=== PATIENT | female | born 1995 | race Caucasian/White ===

== ENCOUNTER 2017-03-21 20:24 | Emergency (ER) ==
[2017-03-21 20:28] VITALS: BP 129/87; TEMP 99.9; BMI 20.7
[2017-03-21] MEDS ORDERED: DECADRON 4 MG/ML SDV IM STA (20:47)
[2017-03-21] MEDS ORDERED: DUONEB NEB STA (20:48)
--- NOTE | 2017-03-21 20:51 | ED.PDOC ---
General ED Provider: Dr. KIARA PERALTA Chief Complaint: Respiratory Complaint Stated Complaint: Coughing congestion, sinus drainage,. been treated x 3 with Tamiflu, cipro, dose pack. Time Seen by Physician: 20:49 Mode of Arrival: Walk-In Information Source: Patient, Family Primary Care Provider: JUNIE CASEY Nursing and Triage Documentation Reviewed and Agree: Yes Reviewed sepsis parameters & appropriate labs ordered?: No System Inflammatory Response Syndrome: Not Applicable Sepsis Protocol: For patient's 13 years and over: Temp is 96.8 and below OR 101 and greater Pulse >90 BPM Resp >20/minute Acutely Altered Mental Status Are patient's symptoms suggestive of a new infection, such as: -Pneumonia -Skin, Soft Tissue -Endocarditis -UTI -Bone, Joint Infection -Implantable Device -Acute Abdominal Infection -Wound Infection -Meningitis -Blood Stream Catheter Infection -Unknown Respiratory Complaint Exam - Respiratory Complaint/Exam Symptoms Are: Still present Timing: Constant Initial Severity: Mild Current Severity: Mild Location: Throat, Chest Character: Reports: Productive cough Aggravating: Reports: Exertion, URI Alleviating: Reports: None Associated Signs and Symptoms: Reports: Dyspnea, Wheezing, URI, Nasal congestion. Denies: Rapid breathing, Fever, Chills, Chest pain, Pleuritic chest pain, Hemoptysis, Dizziness, Calf pain, Calf swelling, Edema, Hoarseness, Sinus discomfort, Vomiting, Sore throat, Weight loss, Decreased oral intake, Increased thirst, Increased appetite, Increased urination Related History: Reports: Similar episode History of Healthcare-Acquired Pneumonia: No Related Surgical History: Reports: None Pulmonary Embolism Risk Factors: None Cardiac Risk Factors: Reports: None Pseudomonas Risk Factors: Reports: None Tuberculosis Risk Factors: Reports: None Status Asthmaticus Risk Factors: Reports: None Home Oxygen Use: No Recent Stress Test: No Recent Echo/LV Function: No Current Antibiotic Use: No Current Asthma Medication Use: No Respiratory Distress: None Inadequate Respiratory Effort: No Dysphagia Present: No Stridor Present: No JVD Present: No Accessory Muscle Use: No Retractions: Not Present Diminished Breath Sounds: No Prolonged Respiration: Inspiratory phase Sinus Tenderness: None Grunting Respirations: No Kussmaul Respirations: No Differential Diagnoses: Pneumonia, Bronchitis, Influenza Review of Systems - Review Of Systems Constitutional: Reports: No symptoms, Fever Eyes: Reports: No symptoms Ears, Nose, Mouth, Throat: Reports: No symptoms Respiratory: Reports: Cough Cardiac: Reports: No symptoms GI: Reports: No symptoms : Reports: No symptoms Musculoskeletal: Reports: No symptoms Skin: Reports: No symptoms Neurological: Reports: No symptoms Endocrine: Reports: No symptoms Hematologic/Lymphatic: Reports: No symptoms All Other Systems: Reviewed and Negative Past Medical History - Past Medical History Previously Healthy: Yes Endocrine: Reports: None Cardiovascular: Reports: None Respiratory: Reports: Asthma Hematological: Reports: None Gastrointestinal: Reports: None Genitourinary: Reports: None Neuro/Psych: Reports: None Musculoskeletal: Reports: None Cancer: Reports: None Last Menstrual Period: 2 WEEKS - Surgical History General Surgical History: Reports: None - Family History Family History: Reports: None - Social History Smoking Status: Never smoker Hx Substance Use: No Alcohol Screening: None - Immunizations Tetanus Shot up to Date: Yes Physical Exam - Physical Exam Appearance: Well-appearing, No pain distress, Well-nourished Eyes: VARUN, EOMI, Conjunctiva clear ENT: Ears normal, Nose normal, Oropharynx normal Respiratory: Airway patent, Breath sounds equal, Respirations nonlabored, Wheezes Cardiovascular: RRR, No rub, No murmur, Tachycardia GI/: Soft, Nontender, No masses, Bowel sounds normal, No Organomegaly Musculoskeletal: Normal strength, ROM intact, No edema, No calf tenderness Skin: Warm, Dry, Normal color Neurological: Sensation intact, Motor intact, Reflexes intact, Cranial nerves intact, Alert, Oriented Psychiatric: Affect appropriate, Mood appropriate Interpretation - Radiology Interpretation Radiology Interpretation By: ED Physician Radiology Results: Negative Critical Care Note - Critical Care Note Total Time (mins): 15 Course - Course Hematology/Chemistry: 03/21/17 21:07 03/21/17 21:07 Orders, Labs, Meds: Lab Review 03/21/17 03/21/17 03/21/17 20:47 21:07 21:07 WBC 10.40 H RBC 4.49 Hgb 13.2 Hct 38.4 MCV 85.5 MCH 29.4 MCHC 34.4 RDW Coeff of Ras 12.5 Plt Count 267 Immature Gran % (Auto) 0.4 Neut % (Auto) 62.2 Lymph % (Auto) 29.4 [place] % (Auto) 6.5 Eos % (Auto) 1.0 Baso % (Auto) 0.5 Immature Gran # (Auto) 0.0 Neut # 6.5 Lymph # 3.1 [place] # 0.7 Eos # 0.1 Baso # 0.1 Sodium 141 Potassium 4.4 Chloride 108 H Carbon Dioxide 23 Anion Gap 14.4 BUN 7 Creatinine 0.74 Estimated GFR (MDRD) 97.00 BUN/Creatinine Ratio 9.45 Glucose 103 Calcium 9.5 Total Bilirubin 0.4 AST 13 L ALT 19 Alkaline Phosphatase 60 Total Protein 7.6 Albumin 3.7 Globulin 3.9 Albumin/Globulin Ratio 0.95 Influenza A (Rapid) Negative by naat Influenza B (Rapid) Negative by naat Orders Category Date Time Status NEBULIZER TREATMENT Stat CARDIO 03/21/17 20:48 Completed CBC W/ AUTO DIFF Stat LAB 03/21/17 21:07 Completed COMPREHENSIVE METABOLIC PANEL Stat LAB 03/21/17 21:07 Completed FLU A/B MOLECULAR Stat LAB 03/21/17 20:47 Completed MOLECULAR GROUP A STREP Stat LAB 03/21/17 20:47 Completed Dexamethasone 4 mg/ml Inj [Decadron 4 mg/ml Sdv] MEDS 03/21/17 21:01 Discontinued 4 mg .ROUTE .STK-MED ONE Dexamethasone 4 mg/ml Inj [Decadron 4 mg/ml Sdv] MEDS 03/21/17 20:47 Discontinued 4 mg IM ONCE STA Ipratropium/Albuterol Neb [Duoneb] MEDS 03/21/17 20:48 Discontinued 1 vial NEB ONCE STA CHEST, 2 VIEWS PA & LAT Stat RADS 03/21/17 20:47 Taken Medications Discontinued Medications Generic Name Dose Route Start Last Admin Trade Name Freq PRN Reason Stop Dose Admin Albuterol/Ipratropium 1 vial 03/21/17 20:48 Duoneb NEB 03/21/17 20:49 ONCE STA Dexamethasone Sodium Phosphate 4 mg 03/21/17 20:47 03/21/17 20:58 Decadron 4 Mg/Ml Sdv IM 03/21/17 20:48 4 mg ONCE STA Administration Vital Signs: Temp Pulse Resp BP Pulse Ox 03/21/17 20:25 99.9 F H 136 H 18 129/87 98 Departure - Departure Time of Disposition: 21:17 Disposition: HOME SELF-CARE Discharge Problem: URTI (acute upper respiratory infection) Instructions: Upper Respiratory Infection (ED) Condition: Stable Pt referred to PMD for follow-up: Yes IPMP verified?: No Additional Instructions: Increase Hydration Probiotics Yogurt Keep f/u with PMD continue breathing treatments Prescriptions: Prednisone 10 mg PO BIDWM #14 tablet Allergies/Adverse Reactions: Allergies azithromycin [From Zithromax] Adverse Reaction (Verified 01/01/16 19:59) Penicillins Adverse Reaction (Verified 01/01/16 19:59) tamsulosin HCl [From Flomax] Adverse Reaction (Verified 01/01/16 19:59) increased HR. Home Medications: Ambulatory Orders Diltiazem HCl [Cardizem Cd] 240 mg PO BEDTIME 11/08/13 Montelukast Sodium [Singulair] 10 mg PO DAILY 11/08/13 Sertraline HCl [Zoloft] 100 mg PO BEDTIME 11/08/13 Ipratropium [place] [Atrovent Hfa] 2 puff IH Q4H PRN 01/15/14 Buspirone HCl 7.5 mg PO BID 01/01/16 Ipratropium [place] 0.02% Neb [Atrovent 0.02% Neb] 1 vial NEB RTQ8H #30 vial.neb 01/01/16 Prednisone 10 mg PO BIDWM #14 tablet 03/21/17 Disposition Discussed With: Patient, Family
[2017-03-21] MEDS ORDERED: DECADRON 4 MG/ML SDV ONE (21:01)
--- NOTE | 2017-03-22 05:52 | DI ---
EXAM: Chest two views HISTORY: Coughing COMPARISON: 01/01/2016 TECHNIQUE: Two views of the chest were performed FINDINGS: The lungs are clear. There is no pleural effusion or pneumothorax. The heart is normal i n size. The mediastinal contour is normal. There are no acute abnormalities of the bones. IMPRESSION: No acute cardiopulmonary process.
== END 2017-03-21 22:54 | disposition home or self-care (01) ==
LOC: ED 20:24
DX: J06.9 Acute upper respiratory infection, unspecified (principal); R05 Cough
CPT/HCPCS: 36415; 80053; 85025; 87502; 87651; 94640; 96372; 99283